=== PATIENT | female | born 1995 | race Caucasian/White ===

== ENCOUNTER 2018-10-23 17:27 | Emergency (ER) | payer MEDICAID ==
[~2018-10-23] VITALS: Ht 157.5 cm; Wt 49.9 kg
[2018-10-23 17:59] VITALS: BP 109/73
--- NOTE | 2018-10-23 18:10 | NUR ---
URINE SPECIMEN COLLECTED AND SENT TO LAB.
[2018-10-23 18:22] LABS: APPEARANCE,URINE Clear (CLEAR); BILIRUBIN,URINE SMALL (NEGATIVE); BLOOD, URINE Negative Ery/uL (NEGATIVE); COLOR,URINE Orange (YELLOW); KETONES,URINE 40 (NEGATIVE); LEUKOCYTE ESTERASE ,URINE Negative (NEGATIVE); NITRITE, URINE Positive (NEGATIVE); PH,URINE 5.5 (5.0-8.0); PROTEIN,URINE 30 mg/dl (NEGATIVE); UGLUCOSE 100 MG/DL mg/dL (NEGATIVE)
[2018-10-23 19:01] LABS: BACTERIA,URINE Many /HPF (None Seen)
[2018-10-23 19:02] LABS: SQUAMOUS EPITHELIAL CELL,UR Many /HPF (None Seen)
== END 2018-10-23 20:00 | disposition home or self-care (01) ==
LOC: ER 17:27
DX: N39.0 Urinary tract infection, site not specified (principal)
CPT/HCPCS: 81000-TC; 84703-TC; 87086-TC; 87186-TC